=== PATIENT | female | born 1975 | race Caucasian/White ===

== ENCOUNTER → 2019-05-08 | Outpatient (CLI) | payer BC, SELFPAY | PROVIDERS: Family Provider Nurse Practitioner; Visit Provider Nurse Practitioner | DX: Z12.31 Encounter for screening mammogram for malignant neoplasm of breast (principal) | CPT/HCPCS: 77067 ==

== ENCOUNTER → 2020-05-11 14:19 | Outpatient (BNVA) | payer BC, SELFPAY | PROVIDERS: Family Provider Nurse Practitioner | DX: R60.9 Edema, unspecified (principal); M79.672 Pain in left foot | CPT/HCPCS: 73630 ==

== ENCOUNTER 2020-06-16 08:49 | Outpatient (CLI) | payer BC, SELFPAY ==
--- NOTE | 2020-06-16 08:54 | MM_ITS ---
WS: [id number] SCREENING DIGITAL MAMMOGRAM WITH CAD HISTORY: SCREENING COMPARISON: 05/08/2019, 02/04/2017 Bilateral CC and MLO views submitted. Computer aided detection analyzed. Breast composition: There are scattered areas of fibroglandular density. No suspicious masses, microc alcifications or architectural distortion. Benign lymph nodes are noted near the axillary tails of ea ch breast. MM/[place] [id number] IMPRESSION: BI-RADS: 2-Benign FOLLOW UP: 1 Year Follow-up
== END 2020-06-16 08:50 | disposition home or self-care (01) ==
LOC: RADSHAW 08:51
PROVIDERS: PCP Nurse Practitioner; Visit Provider Nurse Practitioner
DX: Z12.31 Encounter for screening mammogram for malignant neoplasm of breast (principal)
CPT/HCPCS: 77067

== ENCOUNTER 2021-08-11 09:20 | Outpatient (CLI) | payer BC, SELFPAY ==
--- NOTE | 2021-08-11 09:31 | MM_ITS ---
WS: [id number] BILATERAL 3D TOMOSYNTHESIS DIGITAL SCREENING MAMMOGRAPHY WITH CAD CLINICAL INFORMATION: SCREENING HISTORY: Screening mammogram. No current complaints. COMPARISON: June 16, 2020 TECHNIQUE: Bilateral CC and MLO views. FINDINGS: Scattered fibroglandular densities bilaterally. No suspicious focal mass, asymmetry, calcifications, or architectural distortion. No evidence of malignancy. MM/[place] [id number] IMPRESSION: BI-RADS: 2-Benign FOLLOW UP: 1 Year Follow-up Recommend return to annual screening mammography.
== END 2021-08-11 09:21 | disposition home or self-care (01) ==
LOC: RADSHAW 09:22
PROVIDERS: PCP Nurse Practitioner; Visit Provider Nurse Practitioner
DX: Z12.31 Encounter for screening mammogram for malignant neoplasm of breast (principal)
CPT/HCPCS: 77063; 77067

== ENCOUNTER 2022-08-20 11:04 | Outpatient (CLI) | payer BC, SELFPAY ==
--- NOTE | 2022-08-20 11:12 | MM_ITS ---
WS: [id number] BILATERAL SCREENING DIGITAL TOMOSYNTHESIS MAMMOGRAM WITH CAD HISTORY: SCREENING COMPARISON: 08/11/2021, 06/16/2020 Bilateral CC and MLO views with tomosynthesis and synthetic mammography submitted. Computer aided det ection analyzed. Breast composition: There are scattered areas of fibroglandular density. No suspicious masses, microc alcifications or architectural distortion. MM/[place] [id number] IMPRESSION: BI-RADS: 1-Negative FOLLOW UP: 1 Year Follow-up
== END 2022-08-20 11:05 | disposition home or self-care (01) ==
LOC: RAD 11:07
PROVIDERS: PCP Nurse Practitioner; Visit Provider Nurse Practitioner
DX: Z12.31 Encounter for screening mammogram for malignant neoplasm of breast (principal)
CPT/HCPCS: 77063; 77067

== ENCOUNTER → 2023-04-14 10:15 | Outpatient (BNVA) | payer BC, SELFPAY | PROVIDERS: PCP Nurse Practitioner Family; Visit Provider Internal Medicine | DX: E06.3 Autoimmune thyroiditis (principal); E03.8 Other specified hypothyroidism; E83.39 Other disorders of phosphorus metabolism | CPT/HCPCS: 36415; 80053; 84100; 84439; 84443 ==

== ENCOUNTER 2023-04-26 11:14 | Outpatient (CLI) | payer BC, SELFPAY ==
[2023-04-26 11:59] LABS: Phosphorus 1.4 mg/dL (2.5-4.5)
== END 2023-04-26 11:15 | disposition home or self-care (01) ==
PROVIDERS: PCP Nurse Practitioner Family; Visit Provider Internal Medicine
DX: E83.39 Other disorders of phosphorus metabolism (principal)
CPT/HCPCS: 36415; 84100

== ENCOUNTER 2023-06-07 15:56 | Outpatient (CLI) | payer BC, SELFPAY ==
[2023-06-07 18:38] LABS: 25 Hydroxy Vitamin D 30 ng/mL (30-100); Phosphorus 2.3 mg/dL (2.5-4.5)
== END 2023-06-07 15:57 | disposition home or self-care (01) ==
LOC: LAB 15:58
PROVIDERS: PCP Nurse Practitioner Family; Visit Provider Internal Medicine
DX: E06.3 Autoimmune thyroiditis (principal); E83.39 Other disorders of phosphorus metabolism
CPT/HCPCS: 36415; 82306; 84100

== ENCOUNTER 2023-07-12 10:03 | Outpatient (CLI) | payer BC, SELFPAY ==
[2023-07-12 11:12] LABS: Free T4 Free Thyroxine 1.09 ng/dL (0.82-1.77); Phosphorus 2.1 mg/dL (2.5-4.5); Thyroid Stimulating Hormone 4.42 uIU/mL (0.27-4.20)
== END 2023-07-12 10:04 | disposition home or self-care (01) ==
LOC: LAB 10:06
PROVIDERS: PCP Nurse Practitioner Family; Visit Provider Internal Medicine
DX: E03.8 Other specified hypothyroidism (principal)
CPT/HCPCS: 36415; 84100; 84439; 84443

== ENCOUNTER 2023-08-19 07:43 | Outpatient (CLI) | payer BC, SELFPAY ==
[2023-08-19 08:33] LABS: Alanine Aminotransferase 13 U/L (0-33); Albumin Level 3.9 g/dL (3.5-5.2); Alkaline Phosphatase 69 U/L (35-105); Anion Gap 13.1 (5-19); Aspartate Amino Transferase 15 U/L (0-32); Blood Urea Nitrogen 13 mg/dL (6-20); Calcium 8.6 mg/dL (8.5-10.5); Carbon Dioxide 23 mmol/L (22-29); Chloride 106 mmol/L (98-107); Globulin 2.7 g/dL (1.3-4.6); Glomerular Filtration Rate 132.2 mL/min (90-130); Glucose 106 mg/dL (65-115); Osmolality Calculated 287 mOsm/kg (285-295); Potassium 4.1 mmol/L (3.5-5.1); Sodium 138 mmol/L (136-145); Total Bilirubin 0.3 mg/dL (0.15-1.2); Total Protein 6.6 g/dL (6.6-8.7)
[2023-08-19 08:48] LABS: 25 Hydroxy Vitamin D 33 ng/mL (30-100)
== END 2023-08-19 07:44 | disposition home or self-care (01) ==
LOC: LAB 07:44
PROVIDERS: PCP Nurse Practitioner Family; Visit Provider Internal Medicine
DX: E06.3 Autoimmune thyroiditis (principal); E03.8 Other specified hypothyroidism; E83.39 Other disorders of phosphorus metabolism
CPT/HCPCS: 80053; 82306; 84100

== ENCOUNTER 2023-08-25 08:05 | Outpatient (CLI) | payer BC, SELFPAY ==
--- NOTE | 2023-08-25 08:07 | MM_ITS ---
WS: [id number] BILATERAL SCREENING DIGITAL TOMOSYNTHESIS MAMMOGRAM WITH CAD HISTORY: SCREENING COMPARISON: 08/20/2022, 08/11/2021, 05/08/2019 Bilateral CC and MLO views with tomosynthesis and synthetic mammography submitted. Computer aided det ection analyzed. Breast composition: There are scattered areas of fibroglandular density. No suspicious masses, microc alcifications or architectural distortion. The asymmetry is in the posterior RIGHT breast against the chest wall are stable. Probably representing small intramammary lymph nodes. No new mass. No new nod ules. IMPRESSION: MM/[place] [id number] BI-RADS: 2-Benign FOLLOW UP: 1 Year Follow-up
== END 2023-08-25 08:06 | disposition home or self-care (01) ==
LOC: RAD 08:06
PROVIDERS: PCP Nurse Practitioner Family; Visit Provider Nurse Practitioner Family
DX: Z12.31 Encounter for screening mammogram for malignant neoplasm of breast (principal)
CPT/HCPCS: 77063; 77067

== ENCOUNTER 2023-09-27 11:01 | Outpatient (CLI) | payer BC, SELFPAY ==
[2023-09-27 12:07] LABS: 25 Hydroxy Vitamin D 37 ng/mL (30-100); Phosphorus 2.3 mg/dL (2.5-4.5); Thyroid Stimulating Hormone 2.56 uIU/mL (0.27-4.20)
[2023-09-27 12:40] LABS: Free T4 Free Thyroxine 1.11 ng/dL (0.82-1.77)
== END 2023-09-27 11:02 | disposition home or self-care (01) ==
LOC: LAB 11:02
PROVIDERS: PCP Nurse Practitioner Family; Visit Provider Internal Medicine
DX: E06.3 Autoimmune thyroiditis (principal); E03.8 Other specified hypothyroidism; E83.39 Other disorders of phosphorus metabolism
CPT/HCPCS: 36415; 82306; 84100; 84439; 84443

== ENCOUNTER 2023-11-04 08:25 | Outpatient (CLI) | payer BC, SELFPAY ==
[2023-11-04 08:55] LABS: Calcium Urine Random 18.1 mg/dL
[2023-11-04 09:00] LABS: Calcium 8.7 mg/dL (8.5-10.5); Phosphorus 2.2 mg/dL (2.5-4.5)
[2023-11-04 09:06] LABS: Parathyroid Hormone 42.1 pg/mL (15-65)
[2023-11-04 11:49] LABS: Creatinine, Urine (Cre Clear) 207 mg/dL (28-217)
[2023-11-04 12:27] LABS: Calcium Creatinine Ratio Urine 87 mg/g CRE (0-260)
== END 2023-11-04 08:26 | disposition home or self-care (01) ==
LOC: LAB 08:26
PROVIDERS: PCP Nurse Practitioner Family; Visit Provider Internal Medicine
DX: E06.3 Autoimmune thyroiditis (principal); E03.8 Other specified hypothyroidism
CPT/HCPCS: 36415; 82310; 82340; 83970; 84100

== ENCOUNTER 2023-11-29 09:39 | Outpatient (CLI) | payer BC, SELFPAY | END 2023-11-29 09:40 | disposition home or self-care (01) | LOC: LAB 09:40 | PROVIDERS: PCP Nurse Practitioner Family; Visit Provider Internal Medicine | DX: E06.3 Autoimmune thyroiditis (principal); E03.8 Other specified hypothyroidism | CPT/HCPCS: 36415; 84100 ==

== ENCOUNTER → 2023-12-30 10:42 | Outpatient (BNVA) | payer BC, SELFPAY | PROVIDERS: PCP Nurse Practitioner Family; Visit Provider Internal Medicine | DX: E83.31 Familial hypophosphatemia (principal) | CPT/HCPCS: 36415; 84100 ==

== ENCOUNTER 2024-02-24 10:03 | Outpatient (CLI) | payer BC, SELFPAY ==
--- NOTE | 2024-02-24 10:06 | US_ITS ---
WS: [id number] RENAL ULTRASOUND HISTORY: X-linked hypophosphatemia COMPARISON: None available. TECHNIQUE: 2-D and color Doppler imaging of the kidney submitted. Right kidney: 9.7 cm x 5.4 cm x 4.7 cm. Cortex: 1.1 cm Normal echogenicity with no hydronephrosis or mass. Left kidney: 10.7 cm x 5.2 cm x 4.2 cm. Cortex: 1.1 cm Normal echogenicity with no hydronephrosis or mass. Aorta: Normal. Urinary Bladder: Normal distention. US/US renal BI* [id number] IMPRESSION: Normal renal ultrasound.
== END 2024-02-24 10:04 | disposition home or self-care (01) ==
LOC: RAD 10:04
PROVIDERS: PCP Nurse Practitioner Family; Visit Provider Internal Medicine
DX: E83.31 Familial hypophosphatemia (principal)
CPT/HCPCS: 76770

== ENCOUNTER 2024-03-09 14:53 | Outpatient (CLI) | payer BC, SELFPAY ==
[2024-03-09 15:40] LABS: Alkaline Phosphatase 62 U/L (35-105); Blood Urea Nitrogen 15 mg/dL (6-20); Calcium 8.2 mg/dL (8.5-10.5); Carbon Dioxide 21 mmol/L (22-29); Chloride 108 mmol/L (98-107); Glomerular Filtration Rate 132.2 mL/min (90-130); Glucose 126 mg/dL (65-115); Osmolality Calculated 292 mOsm/kg (285-295); Sodium 140 mmol/L (136-145)
== END 2024-03-09 14:54 | disposition home or self-care (01) ==
LOC: LAB 14:55
PROVIDERS: PCP Nurse Practitioner Family; Visit Provider Internal Medicine
DX: E83.39 Other disorders of phosphorus metabolism (principal); E83.31 Familial hypophosphatemia
CPT/HCPCS: 80048; 84075

== ENCOUNTER 2024-07-16 08:58 | Outpatient (CLI) | payer BC, OTHER, SELFPAY ==
[2024-07-16 09:57] LABS: Calcium 8.9 mg/dL (8.5-10.5)
[2024-07-16 10:04] LABS: Parathyroid Hormone 30.8 pg/mL (15-65)
[2024-07-16 10:05] LABS: Free T4 Free Thyroxine 1.02 ng/dL (0.82-1.77); Phosphorus 2.2 mg/dL (2.5-4.5); Thyroid Stimulating Hormone 4.79 uIU/mL (0.27-4.20)
[2024-07-16 10:51] LABS: 25 Hydroxy Vitamin D 48 ng/mL (30-100); Estradiol 102.5 pg/mL; Follicle Stimulating Hormone 6.2 mIU/mL; Luteinizing Hormone 8.8 mIU/mL (0.5-41.7)
== END 2024-07-16 08:59 | disposition home or self-care (01) ==
LOC: LAB 09:10
PROVIDERS: PCP Nurse Practitioner Family; Visit Provider Internal Medicine
DX: E83.31 Familial hypophosphatemia (principal); E06.3 Autoimmune thyroiditis; E03.8 Other specified hypothyroidism; E83.39 Other disorders of phosphorus metabolism; R63.5 Abnormal weight gain
CPT/HCPCS: 36415; 82306; 82310; 82670; 83001; 83002; 83970; 84100; 84439; 84443

== ENCOUNTER 2024-09-07 11:34 | Outpatient (CLI) | payer BC, SELFPAY ==
--- NOTE | 2024-09-07 11:37 | MM_ITS ---
WS: [id number] BILATERAL 3D TOMOSYNTHESIS DIGITAL SCREENING MAMMOGRAPHY WITH CAD CLINICAL INFORMATION: SCREENING HISTORY: Screening mammogram. No current complaints. COMPARISON: 2023 TECHNIQUE: Bilateral CC and MLO views. FINDINGS: Scattered fibroglandular densities bilaterally. No suspicious focal mass, asymmetry, calcifications, or architectural distortion. No evidence of malignancy. MM/MM scr BI tomosynthesis [id number] IMPRESSION: DENSITY: There are scattered areas of fibroglandular density. BI-RADS: 1 - Negative. FOLLOW UP: 1 Year Follow-up Recommend return to annual screening mammography.
== END 2024-09-07 11:35 | disposition home or self-care (01) ==
PROVIDERS: PCP Nurse Practitioner Family; Visit Provider Nurse Practitioner Family
DX: Z12.31 Encounter for screening mammogram for malignant neoplasm of breast (principal); R92.323 Mammographic fibroglandular density, bilateral breasts
CPT/HCPCS: 77063; 77067

== ENCOUNTER 2024-10-12 08:12 | Outpatient (CLI) | payer BC, SELFPAY ==
[2024-10-12 09:38] LABS: Calcium 8.7 mg/dL (8.5-10.5)
[2024-10-12 09:46] LABS: Parathyroid Hormone 33.2 pg/mL (15-65)
[2024-10-12 09:57] LABS: Free T4 Free Thyroxine 1.04 ng/dL (0.82-1.77); Phosphorus 2.1 mg/dL (2.5-4.5)
[2024-10-12 10:31] LABS: 25 Hydroxy Vitamin D 48 ng/mL (30-100); Estradiol 6.3 pg/mL; Follicle Stimulating Hormone 2.5 mIU/mL; Luteinizing Hormone 2.5 mIU/mL (0.5-41.7)
== END 2024-10-12 08:13 | disposition home or self-care (01) ==
PROVIDERS: PCP Nurse Practitioner Family; Visit Provider Internal Medicine
DX: E03.8 Other specified hypothyroidism (principal); E83.39 Other disorders of phosphorus metabolism; E06.3 Autoimmune thyroiditis; E83.31 Familial hypophosphatemia; R63.5 Abnormal weight gain
CPT/HCPCS: 36415; 82306; 82310; 82670; 83001; 83002; 83970; 84100; 84439; 84443

== ENCOUNTER 2024-12-17 15:58 | Outpatient (CLI) | payer BC, SELFPAY ==
[2024-12-17 20:04] LABS: Free T4 Free Thyroxine 1.13 ng/dL (0.82-1.77); Thyroid Stimulating Hormone 2.45 uIU/mL (0.27-4.20)
== END 2024-12-17 15:59 | disposition home or self-care (01) ==
PROVIDERS: PCP Nurse Practitioner Family; Visit Provider Internal Medicine
DX: E06.3 Autoimmune thyroiditis (principal); E03.8 Other specified hypothyroidism; R63.5 Abnormal weight gain; E83.31 Familial hypophosphatemia; N95.1 Menopausal and female climacteric states
CPT/HCPCS: 36415; 84439; 84443